=== PATIENT | female | born 1995 | race Caucasian/White ===

== ENCOUNTER 2016-08-30 20:14 | Emergency (ER) | payer OTHER ==
[2016-08-30 22:12] LABS: HEMOGLOBIN 12.2 gm/dl (12.3-15.3); RED BLOOD COUNT 3.92 M/UL (4.00-5.10); WHITE BLOOD COUNT 5.7 K/UL (4.5-11.0)
[2016-08-30 22:25] LABS: BUN/CREATININE RATIO 14 (0-10)
== END 2016-08-31 | disposition home or self-care (01) ==
LOC: ER1 20:14
PROVIDERS: Student in an Organized Health Care Education/Training Program
DX: R51 Headache (principal); R11.2 Nausea with vomiting, unspecified; F17.210 Nicotine dependence, cigarettes, uncomplicated
CPT/HCPCS: 36415; 70450; 80053; 81001; 84703; 85025; 87086; 96361; 96374; 96375; 99284; J1200; J2765; J7030